=== PATIENT | female | born 1980 | race Caucasian/White ===

== ENCOUNTER 2017-06-18 06:35 | Inpatient (IN) | payer OTHER ==
[2017-06-15 12:25] LABS: Urine WBC None Seen /hpf (0 - 5)
[2017-06-15 12:43] LABS: Basophils # (auto) 0 uL; Basophils % (auto) 0.6 % (0.0-2.0); Eosinophils # (auto) 0 uL; Eosinophils % (auto) 0.3 % (0.0-7.0); Hemoglobin 14.1 g/dL (12.2-16.2); Lymphocytes # (auto) 1.8 uL; Lymphocytes % (auto) 28.9 % (10.0-50.0); Mean Corpuscular Hemoglobin 29.6 pg (28.0-32.0); Mean Corpuscular Hgb Conc. 33.5 g/dL (32.0-36.0); Mean Corpuscular Volume 88.2 fL (80.0-100.0); Monocytes # (auto) 0.4 uL; Neutrophils # (auto) 3.9 uL; Neutrophils % (auto) 63.2 % (37.0-80.0); Nucleated Red Blood Cells % 0.1 %; Platelet Count (auto) 274 10^3/uL (140-450); Red Blood Cells 4.76 10^6/uL (4.0-5.20); Red Cell Distribution Width 12.9 % (11.8-14.3); White Blood Cell 6.2 10^3/uL (4.4-10.8)
[2017-06-15 12:47] LABS: Urine Bacteria NONE SEEN /hpf (None Seen); Urine Blood Negative /uL (Negative); Urine Specific Gravity 1.004 (1.001-1.035)
[2017-06-15 12:55] LABS: INR 0.95 (0.9-1.15); Partial Thromboplastin Time 29.9 sec (22.64-33.71); Prothrombin Time 10.3 sec (9.37-12.3)
[2017-06-15 12:58] LABS: Albumin 3.8 g/dL (3.4-5.0); BUN/Creatinine Ratio 13.9; Calcium 8.5 mg/dL (8.5-10.1); Potassium 3.7 mmol/L (3.5-5.1)
[2017-06-15 13:01] LABS: Bilirubin, Total 0.5 mg/dL (0.2-1.0); Total Protein 7.3 g/dL (6.4-8.2)
[~2017-06-18] VITALS: Ht 172.7 cm; Wt 96.7 kg
[~2017-06-18 06:35] MED LIST: FAM20T PO; FERR-7 PO; MULTTAB61 PO; OMEP20CA74 PO
[2017-06-18] MEDS ORDERED: ceFAZolin 1GM/50ML 50 ML IV ONE ×2 (06:59→08:15)
[2017-06-18] MEDS ORDERED: MEPERIDINE HCL (50 MG/ML) 1 ML VIAL ONE (08:00)
[2017-06-18] MEDS ORDERED: MIDAZOLAM HCL 1MG/1ML-2 ML VIAL ONE (08:00)
[2017-06-18] MEDS ORDERED: fentaNYL CITRATE 100 MCG/2 ML VL ONE (08:00)
[2017-06-18] MEDS ORDERED: fentaNYL CITRATE 5 ML ONE (08:04)
[2017-06-18] MEDS ORDERED: PROPOFOL 10 MG/ML 20 ML IV ONE (08:05)
[2017-06-18] MEDS ORDERED: ROCURONIUM 10MG/ML 10ML VIAL IV ONE ×3 (08:05→08:14)
[2017-06-18] MEDS ORDERED: DEXAMETHASONE SOD PHOS 10MG/1ML VIAL INJ ONE (08:05)
[2017-06-18] MEDS ORDERED: MORPHINE SULF INJ 2 MG/ML SYRINGE 1ML IV PRN (08:15)
[2017-06-18] MEDS ORDERED: NITROGLYCERIN 0.4 MG SL TAB SL PRN (08:15)
[2017-06-18] MEDS ORDERED: ONDANSETRON HCL 4 MG/2 ML VIAL IV PRN (08:15)
[2017-06-18] MEDS ORDERED: ACETAMINOPHEN 500 MG TAB PO PRN (08:15)
[2017-06-18] MEDS ORDERED: MORPHINE SULFATE 4 MG/ML SYR/VIAL IV PRN (08:15)
[2017-06-18] MEDS ORDERED: MIDAZOLAM HCL 1MG/1ML-2 ML VIAL IV PRN (08:30)
[2017-06-18] MEDS ORDERED: HYDROmorphone HCL 2 MG/ML VL IV PRN (08:30)
[2017-06-18] MEDS ORDERED: KETOROLAC TROMETH 30 MG/ML 1ML VIAL IV ONE (08:30)
[2017-06-18] MEDS ORDERED: ePHEDrine SULFATE 50 MG/ML AMP IV PRN (08:30)
[2017-06-18] MEDS ORDERED: LABETALOL HCL 5 MG/ML 4ML SYRINGE IV PRN (08:30)
[2017-06-18] MEDS ORDERED: ONDANSETRON HCL 4 MG/2 ML VIAL IV ONE (08:30)
[2017-06-18] MEDS ORDERED: BUPIVACAINE 0.25% INJ 50ML VIAL ONE (08:58)
[2017-06-18] MEDS ORDERED: LIDOCAINE 1% HCL (LOCAL ANESTH.) INJ 20ML MDV ONE (08:58)
[2017-06-18] MEDS ORDERED: ONDANSETRON HCL 4 MG/2 ML VIAL ONE (09:38)
[2017-06-18] MEDS ORDERED: MORPHINE SULFATE 4 MG/ML SYR/VIAL IV ONE (10:00)
[2017-06-18] MEDS ORDERED: GLYCOPYRROLATE 0.2 MG/ML 1ML VIAL ONE (10:16)
[2017-06-18] MEDS ORDERED: NEOSTIGMINE 1 MG/ML INJ (10mg/10ML VIAL) ONE (10:16)
[2017-06-18] MEDS: MORPHINE SULFATE 4 MG/ML SYR/VIAL IV PRN ×5 (11:05→20:33)
[2017-06-18] MEDS ORDERED: diphenhdrAMINE HCL 50 MG/1 ML VL IV ONE (12:15)
[2017-06-18 13:10] VITALS: BP 110/64
[2017-06-18] MEDS: HYDROcodone-ACET 10/325MG TAB PO PRN (13:23)
[2017-06-18] MEDS: SODIUM CHLORIDE 0.9% 1,000 ML IV SCH ×2 (13:26→16:08)
[2017-06-18 16:37] VITALS: BP 108/52
[2017-06-18 20:00] VITALS: BP 97/60
[2017-06-18 22:28] VITALS: BP 97/60
[2017-06-19] MEDS: SODIUM CHLORIDE 0.9% 1,000 ML IV SCH ×2 (00:34→08:03)
[2017-06-19] MEDS: MORPHINE SULFATE 4 MG/ML SYR/VIAL IV PRN ×2 (00:35→06:19)
[2017-06-19] MEDS: HYDROcodone-ACET 10/325MG TAB PO PRN ×2 (02:04→08:02)
[2017-06-19 05:26] VITALS: BP 100/64
[2017-06-19 05:59] LABS: Basophils # (auto) 0 uL; Basophils % (auto) 0.1 % (0.0-2.0); Eosinophils # (auto) 0 uL; Hematocrit 36.7 % (36.0-46.0); Hemoglobin 12.6 g/dL (12.2-16.2); Lymphocytes # (auto) 1.4 uL; Lymphocytes % (auto) 13.3 % (10.0-50.0); Mean Corpuscular Hemoglobin 30.7 pg (28.0-32.0); Mean Corpuscular Hgb Conc. 34.4 g/dL (32.0-36.0); Mean Corpuscular Volume 89.1 fL (80.0-100.0); Monocytes # (auto) 0.6 uL; Monocytes % (auto) 5.6 % (0.0-12.0); Neutrophils # (auto) 8.7 uL; Nucleated Red Blood Cells % 0.1 %; Platelet Count (auto) 236 10^3/uL (140-450); Red Blood Cells 4.12 10^6/uL (4.0-5.20); Red Cell Distribution Width 12.9 % (11.8-14.3); White Blood Cell 10.8 10^3/uL (4.4-10.8)
[2017-06-19 08:30] VITALS: BP 109/58
[2017-06-19 09:00] VITALS: BP 109/58
[2017-06-19 09:42] VITALS: BP 109/58
[2017-06-19 12:33] VITALS: BP 114/66
== END 2017-06-19 12:30 | disposition home or self-care (01) | DRG 743 ==
LOC: SUR 06:35 → TELE-WESTW 06:36 → WEST WING 18:32
PROVIDERS: ADMIT Obstetrics & Gynecology; ATTEND Obstetrics & Gynecology
PROC: 0UB74ZZ Excision of Bilateral Fallopian Tubes, Percutaneous Endoscopic Approach (ICD-10-PCS; 2017-06-18)
PROC: 8E0W4CZ Robotic Assisted Procedure of Trunk Region, Percutaneous Endoscopic Approach (ICD-10-PCS; 2017-06-18)
PROC: 0UT94ZZ Resection of Uterus, Percutaneous Endoscopic Approach (ICD-10-PCS; principal; 2017-06-18 08:15)
DX: N80.0 Endometriosis of uterus (principal); N92.6 Irregular menstruation, unspecified
CPT/HCPCS: 36415; 80053; 81001; 84702; 85025; 85610; 85730; 86850; 86900; 86901; 87086; J0690; J1100; J2001; J2250; J2405; J2704; J3490